=== PATIENT | male | born 1990 | race Caucasian/White ===

== ENCOUNTER 2022-06-09 11:27 | Emergency (ER) | payer OTHER ==
[2022-06-09] MEDS: Ketorolac 10 MG Tab PO ONE (12:03)
[2022-06-09] MEDS: Cyclobenzaprine 10 MG Tab PO ONE (12:04)
== END 2022-06-09 12:38 | disposition home or self-care (01) ==
LOC: VM.ED 11:27
DX: M62.830 Muscle spasm of back (principal)
CPT/HCPCS: 99283; A9270